=== PATIENT | female | born 1980 | race Caucasian/White ===

== ENCOUNTER → 2018-01-11 | Outpatient (CLI) | payer OTHER | LOC: FIMAGING 13:16 | PROVIDERS: ATTEND Obstetrics & Gynecology | DX: O34.12 Maternal care for benign tumor of corpus uteri, second trimester (principal); O09.522 Supervision of elderly multigravida, second trimester; O26.01 Excessive weight gain in pregnancy, first trimester; O34.219 Maternal care for unspecified type scar from previous cesarean delivery; Z68.34 Body mass index [BMI] 34.0-34.9, adult; D25.9 Leiomyoma of uterus, unspecified; Z3A.19 19 weeks gestation of pregnancy ==

== ENCOUNTER → 2018-02-08 | Outpatient (CLI) | payer OTHER | LOC: FIMAGING 13:12 | PROVIDERS: ATTEND Obstetrics & Gynecology | DX: O09.522 Supervision of elderly multigravida, second trimester (principal); D25.9 Leiomyoma of uterus, unspecified; Z3A.23 23 weeks gestation of pregnancy ==

== ENCOUNTER → 2018-04-10 | Outpatient (CLI) | payer OTHER | LOC: FIMAGING 13:32 | PROVIDERS: ATTEND Obstetrics & Gynecology | DX: O09.523 Supervision of elderly multigravida, third trimester (principal); D25.9 Leiomyoma of uterus, unspecified; Z3A.32 32 weeks gestation of pregnancy ==